=== PATIENT | female | born 1990 | race Two or more races ===

== ENCOUNTER 2018-10-27 16:12 | Emergency (ER) | payer OTHER ==
[2018-10-27 16:20] VITALS: BP 115/101
--- NOTE | 2018-10-27 16:30 | EDPHY ---
H & P Smoking Status: Never smoked Time Seen by Provider: 10/27/18 16:22 HPI/ROS: CHIEF COMPLAINT: Right knee injury HISTORY OF PRESENT ILLNESS: 27-year-old female arrives via private vehicle complaining of acute right knee pain. Patient works at [employer], was standing on object, slipped, sustained a valgus stress to her right knee is complaining of right lateral knee pain reproducible range of motion. No direct trauma or fall onto the knee. No proximal distal pain or injury. No paresthesia. No prior history of injury. PRIMARY CARE PROVIDER: Worker's compensation REVIEW OF SYSTEMS: A ten point review of systems was performed and is negative with the exception of the items mentioned in the HPI PHYSICAL EXAM (Prior to examination, patient consented to physical exam, hands were washed and my usual and customary physical exam procedures followed) 1) GENERAL: Well-developed, well-nourished, alert and oriented. Appears to be in no acute distress. 2) HEAD: Normocephalic 3) HEENT: Pupils equal, round, reactive to light bilaterally. 4) LUNGS: Breathing comfortably. 5) MUSCULOSKELETAL: Exam of the right knee shows normal coloration, normal temperature, no visible signs of trauma. Tender to palpation lateral aspect of knee. No effusion. . Compartments are soft. Proximally and distally nontender. 6) SKIN: Intact. 7) VASCULAR: DP,PT pulses and cap refill present and brisk distally DIFFERENTIAL DIAGNOSIS: in no particular order including but not limited to fracture, sprain, compartment syndrome, septic arthritis, DVT Xray of the right knee interpreted by myself: no definitive acute osseous abnormality Procedure: Crutches indications for crutch use discussed with patient. Patient fitted for crutches by ER staff. Observed ambulating with crutches. I think the patient has the capacity to safely use crutches. Usual and customary crutch walking precautions provided Procedure: Splint A knee immobilizer splint was applied by ER sterilisation technician. After application of the splint I returned and re-examined the patient. The splint was adequately immobilizing the joint and distal to the splint the patient's circulation and sensation were intact. Patient shows no signs of compartment syndrome. Was given orthopedic precautions. MEDICAL DECISION MAKING Serial evaluations performed on patient. I discussed the limitations of x-ray in diagnosis of knee pain and injury. At this time I do not think that emergent MRI is currently indicated. However, I have recommended follow-up with Orthopedic surgery and provided this referral information. Informed the patient that outpatient MRI may be indicated. Doubt septic arthritis. Doubt compartment syndrome. Doubt DVT. Care of patient under supervision of secondary supervising physician Dr Shelly Chavez . (Luis A Torres) Constitutional: Initial Vital Signs Temperature (C) 36.9 C 10/27/18 16:16 Heart Rate 106 H 10/27/18 16:16 Respiratory Rate 18 10/27/18 16:16 Blood Pressure 115/101 H 10/27/18 16:16 O2 Sat (%) 99 10/27/18 16:16 O2 Delivery Mode Room Air Allergies/Adverse Reactions: No Known Allergies Allergy (Unverified 10/27/18 16:20) Home Medications: Medication Instructions Recorded Ibuprofen 600 mg PO DAILY PRN 01/22/13 Pharmacy Completed 01/31/13 01/31/13 Polyethylene Glycol 3350 [Miralax 17 gm PO DAILY 01/31/13 17 gm (OTC)] Reconciled 02/01/13 02/01/13 MDM/Departure - MDM ED Course/Re-evaluation: The patient was evaluated and managed by the Physician [facility] Administrator. My co- signature indicates that I have reviewed this chart and I agree with the findings and plan of care as documented. I am the secondary supervising physician. (Shelly Chavez) - Depart Disposition: Home, Routine, Self-Care Clinical Impression: Sprain of right knee Qualifiers: Encounter type: initial encounter Involved ligament of knee: unspecified ligament Qualified Code(s): S83.91XA - Sprain of unspecified site of right knee , initial encounter Condition: Good Instructions: Knee Sprain (ED) Additional Instructions: Return to the ER immediately if you experience discoloration, have worsening pain, numbness, tingling, or any other symptoms that concern you. If you received x-rays in the emergency department today, be advised, that ligamentous , tendon, muscular, and other non-bony injury cannot be fully ruled out. Try to keep your affected extremity elevated above the level of your chest, and keep cold packs on the affected area, for the next 48 hours. Adult Pain & Fever Control: We recommend Acetaminophen (Tylenol) and Ibuprofen (Motrin,Advil) for pain and fever control. When fever is high or pain severe, both drugs can be used at the same time, but at different intervals. Please note the time differences. Your dose is: Acetaminophen [650]mg every 4 to 6 hours Ibuprofen 600mg every 6 hours with food OR Note: do not take Acetaminophen with Hydrocodone (Vicodin, Lortab) or Oycodone (Percocet). These medications also contain Acetaminophen. No more than 3000mg of Acetaminophen should be taken in 24 hours (for an adult). Stand Alone Forms: Work Comp Follow Up Referrals: Breanna Walker MD [Medical Doctor] - 2-3 days, call for appt.
== END 2018-10-27 16:45 | disposition home or self-care (01) ==
DX: S83.91XA Sprain of unspecified site of right knee, initial encounter (principal); W01.198A Fall on same level from slipping, tripping and stumbling with subsequent striking against other object, initial encounter; Y99.0 Civilian activity done for income or pay
CPT/HCPCS: L1830